=== PATIENT | male | born 1950 | race Caucasian/White ===

== ENCOUNTER 2022-01-21 09:51 | Day surgery (SDC) | payer OTHER, SELFPAY ==
[2022-01-21] MEDS: KETOROLAC OPHTH 0.5% 1 DROP EYE-LEFT ×2 (10:00→10:05)
[2022-01-21] MEDS: TETRACAINE 0.5% OPHTH 1 DROP EYE-LEFT ×2 (10:00→10:05)
[2022-01-21 10:07] VITALS: BMI 25.5
[2022-01-21] MEDS: TETRACAINE 0.5% OPHTH 2 DROP EYE-LEFT (10:07)
[2022-01-21] MEDS: BALANCED SALT IRRIG SOLN 15 ML EYE-LEFT (10:07)
[2022-01-21 10:21] VITALS: BP 122/84; PULSE 57; RESP 18; TEMP 36.7; O2SAT 97
[2022-01-21] MEDS: SODIUM CHLORIDE 0.9 % (FLUSH) 10 ML SYRINGE IVF (10:27)
--- NOTE | 2022-01-21 11:07 | W.ANESCHARGE ---
Anesthesia Charges Start Date/Time Anesthesia Start Date: 01/21/22 Anesthesia Start Time: 10:37 Stop Date/Time Anesthesia Stop Date: 01/21/22 Anesthesia Stop Time: 11:10 Summary Emergency: No Extremes of Age: Over 70-CPT 36623
[2022-01-21 11:10] VITALS: BP 139/88; PULSE 56; RESP 16; TEMP 36.4; O2SAT 97
--- NOTE | 2022-01-21 11:18 | P.PCN_ITS ---
Procedure Note Date Seen: 01/21/22 Will [facility] bill your pro fee for this procedure?: Yes Procedure Description: SURGEON: Pamela Singh MD PREOPERATIVE DIAGNOSIS: Nuclear sclerotic cataract, left eye. POSTOPERATIVE DIAGNOSIS: Nuclear sclerotic cataract, left eye. NAME OF OPERATION: Phacoemulsification of cataract with posterior chamber intraocular lens implantation in the left eye. ANESTHESIA: Topical. ESTIMATED BLOOD LOSS: Less than 2 cc. COMPLICATIONS: None. PATHOLOGY SPECIMEN: None. INDICATIONS: See consult note for details. The risks, benefits and alternatives of the procedure were explained to the patient, who elected to proceed and signed informed consent to do so. PROCEDURE: The patient was brought to the pre-holding area where the left eye was identified as the operative eye. I placed my initials above this eye. The patient received eye drops consisting of 0.5% tetracaine, 1% tropicamide, 10% phenylephrine, and 0.5% ketorolac. The patient was then brought to the operating room where the left eye was again identified as the operative eye. The eye was prepped with Betadine and draped in the usual sterile ophthalmic fashion. A #15 super-sharp blade was used to create a paracentesis site. 1% non-preserved intracameral lidocaine was injected into the anterior chamber. Endocoat was injected into the anterior chamber. A 2.4 mm keratome was used to create a three-plane self-sealing incision 1 mm anterior to the temporal limbus. A cystotome was used to create an anterior capsular leaflet. The Utrata forceps were used to extend this to form a continuous curvilinear capsulorrhexis. Hydrodissection was performed. The cataract was removed with phacoemulsification using the [id number] technique. The irrigation and aspiration tip was used to remove the remaining cortex. Healon was injected into the capsular bag. An MARGARITA ZCB00 intraocular lens of 17.5 diopters was injected into the capsular bag. The irrigation and aspiration tip was used to remove the remaining viscoelastic. Balanced salt solution on a cannula was used to hydrate the wound, and the wound was found to be watertight. The pupil was noted to be round. DISPOSITION: The patient was taken to the recovery room and discharged to home in stable condition. The patient was instructed to call me or go to the emergency department with any sudden change, including dramatic loss of vision, severe pain in the eye or eyebrow region, nausea, or vomiting. The patient will follow up in the clinic tomorrow morning. Surgeon: Pamela Singh MD
--- NOTE | 2022-01-21 11:50 | W.ANESCHARGE ---
Anesthesia Charges Start Date/Time Anesthesia Start Date: 01/21/22 Anesthesia Start Time: 10:37 Stop Date/Time Anesthesia Stop Date: 01/21/22 Anesthesia Stop Time: 11:10 Summary Emergency: No Extremes of Age: Over 70-CPT 24332
== END 2022-01-21 11:50 | disposition home or self-care (01) ==
PROVIDERS: PCP Family Medicine; Visit Provider Ophthalmology
PROC: (CPT 66984; principal; 2022-01-21 09:45)
DX: H25.12 Age-related nuclear cataract, left eye (principal)
CPT/HCPCS: 66984; 00142; 99100; A9270; J2250; J3010; V2632

== ENCOUNTER 2022-02-18 07:31 | Day surgery (SDC) | payer OTHER, SELFPAY ==
[2022-02-18 07:45] VITALS: BMI 26.2
[2022-02-18] MEDS: KETOROLAC OPHTH 0.5% 1 DROP EYE-RIGHT ×3 (07:45→08:05)
[2022-02-18] MEDS: TETRACAINE 0.5% OPHTH 1 DROP EYE-RIGHT ×2 (07:45→08:00)
[2022-02-18 07:52] VITALS: BP 114/79; PULSE 58; RESP 16; TEMP 36.8; O2SAT 93
[2022-02-18] MEDS: SODIUM CHLORIDE 0.9 % (FLUSH) 10 ML SYRINGE IVF (08:00)
[2022-02-18] MEDS: TETRACAINE 0.5% OPHTH 2 DROP EYE-RIGHT (08:57)
--- NOTE | 2022-02-18 08:59 | W.ANESCHARGE ---
Anesthesia Charges Start Date/Time Anesthesia Start Date: 02/18/22 Anesthesia Start Time: 08:54 Stop Date/Time Anesthesia Stop Date: 02/18/22 Anesthesia Stop Time: 09:20 Summary Emergency: No Extremes of Age: Over 70-CPT 10460
[2022-02-18] MEDS: BALANCED SALT IRRIG SOLN 15 ML EYE-RIGHT (09:00)
--- NOTE | 2022-02-18 09:09 | W.ANESCHARGE ---
Anesthesia Charges Start Date/Time Anesthesia Start Date: 02/18/22 Anesthesia Start Time: 08:54 Stop Date/Time Anesthesia Stop Date: 02/18/22 Anesthesia Stop Time: 09:20 Summary Emergency: No Extremes of Age: Over 70-CPT [id number]
--- NOTE | 2022-02-18 09:29 | P.OPTPRC_ITS ---
Procedure Note Date of procedure: 02/18/22 Will [facility] bill your pro fee for this procedure?: Yes Procedure Description: SURGEON: Pamela Singh MD PREOPERATIVE DIAGNOSIS: Nuclear sclerotic cataract, right eye. POSTOPERATIVE DIAGNOSIS: Nuclear sclerotic cataract, right eye. NAME OF OPERATION: Phacoemulsification of cataract with posterior chamber intraocular lens implantation in the right eye. ANESTHESIA: Topical. ESTIMATED BLOOD LOSS: Less than 2 cc. COMPLICATIONS: None. PATHOLOGY SPECIMEN: None. INDICATIONS: See consult note for details. The risks, benefits and alternatives of the procedure were explained to the patient, who elected to proceed and s igned informed consent to do so. PROCEDURE: The patient was brought to the pre-holding area where the right eye was identified as the operative eye. I placed my initials above this eye. The patient received eye drops consisting of 0.5% tetracaine, 1% tropicamide, 10% phenylephrine, and 0.5% ketorolac. The patient was then brought to the operating room where the right eye was again identified as the operative eye. The eye was prepped with Betadine and draped in the usual sterile ophthalmic fashion. A #15 super-sharp blade was used to create a paracentesis site. 1% non-preserved intracameral lidocaine was injected into the anterior chamber. Endocoat was injected into the anterior chamber. A 2.4 mm keratome was used to create a three-plane self-sealing incision 1 mm anterior to the temporal limbus. A cystotome was used to create an anterior capsular leaflet. The Utrata forceps were used to extend this to form a continuous curvilinear capsulorrhexis. Hydrodissection was performed. The cataract was removed with phacoemulsification using the [id number] technique. The irrigation and aspiration tip was used to remove the remaining cortex. Healon was injected into the capsular bag. An MARGARITA ZCB00 intraocular lens of 18.0 diopters was injected into the capsular bag. The irrigation and aspiration tip was used to remove the remaining viscoelastic. Balanced salt solution on a cannula was used to hydrate the wound, and the wound was found to be watertight. The pupil was noted to be round. DISPOSITION: The patient was taken to the recovery room and discharged to home in stable condition. The patient was instructed to call me or go to the emergency department with any sudden change, including dramatic loss of vision, severe pain in the eye or eyebrow region, nausea, or vomiting. The patient will follow up in the clinic tomorrow morning. Surgeon: Pamela Singh MD
[2022-02-18 09:39] VITALS: BP 154/97; PULSE 49; RESP 16; TEMP 36.8; O2SAT 96
--- NOTE | 2022-02-18 10:12 | W.ANESCHARGE ---
Anesthesia Charges Start Date/Time Anesthesia Start Date: 02/18/22 Anesthesia Start Time: 08:54 Stop Date/Time Anesthesia Stop Date: 02/18/22 Anesthesia Stop Time: 09:20 Summary Emergency: No Extremes of Age: Over 70-CPT [id number]
== END 2022-02-18 22:00 | disposition home or self-care (01) ==
PROVIDERS: PCP Family Medicine; Visit Provider Ophthalmology
PROC: (CPT 66984; principal; 2022-02-18 07:30)
DX: H25.11 Age-related nuclear cataract, right eye (principal)
CPT/HCPCS: 66984; 00140; 00142; 99100; A9270; J2250; J3010; V2632

== ENCOUNTER 2022-04-03 12:54 | Outpatient (CLI) | payer OTHER, SELFPAY | END 2022-04-03 12:55 | disposition home or self-care (01) | LOC: RAD 12:56 | PROVIDERS: PCP Family Medicine | DX: I25.10 Atherosclerotic heart disease of native coronary artery without angina pectoris (principal); I34.0 Nonrheumatic mitral (valve) insufficiency; I25.5 Ischemic cardiomyopathy; R06.02 Shortness of breath | CPT/HCPCS: 93306 ==

== ENCOUNTER 2024-03-30 15:15 | Outpatient (RCR) | payer OTHER, SELFPAY | END 2024-06-12 08:59 | disposition home or self-care (01) | PROVIDERS: PCP Family Medicine; Visit Provider Family Medicine | DX: M25.562 Pain in left knee (principal); Z98.890 Other specified postprocedural states; Z51.89 Encounter for other specified aftercare | CPT/HCPCS: 97110; 97140; 97161 ==